=== PATIENT | male | born 1950 | race Two or more races ===

== ENCOUNTER → 2017-09-06 | Outpatient (CLI) | payer OTHER ==
[2017-09-06 09:53] LABS: Cholesterol 162 mg/dL (< 200); HDL Cholesterol 41 mg/dL (40-59); LDL Cholesterol 115 mg/dL (< 100); Triglycerides 134 mg/dL (< 150)
[2017-09-06 10:15] LABS: Hepatitis B Surface Antigen Negative (Negative)
[2017-09-06 11:10] LABS: Hepatitis C Antibody Negative (Negative)
[2017-09-06 11:11] LABS: Hepatitis A Ab IgM Negative; Hepatitis B Core IgM Negative
== END | disposition home or self-care (01) ==
LOC: LAB 08:23
PROVIDERS: ATTEND Internal Medicine
DX: Z12.11 Encounter for screening for malignant neoplasm of colon (principal); I10 Essential (primary) hypertension; E78.2 Mixed hyperlipidemia; R79.89 Other specified abnormal findings of blood chemistry
CPT/HCPCS: 36415; 80061; 80074; 82306

== ENCOUNTER 2020-12-14 20:24 | Inpatient (IN) | payer MEDICARE, OTHER ==
[~2020-12-14] VITALS: Ht 180.3 cm; Wt 95.6 kg
[2020-12-14 21:25] LABS: Basophils # (auto) 0.1 10 ^3/uL (0-0.2); Eosinophils # (auto) 0 10 ^3/uL (0-0.8); Hematocrit 45.2 % (41.0-53.0); Hemoglobin 16.1 g/dL (13.5-17.5); Lymphocytes # (auto) 0.5 10 ^3/uL (0.4-5.4); Lymphocytes % (auto) 6.2 % (10.0-50.0); Mean Corpuscular Hemoglobin 31.6 pg (28.0-32.0); Mean Corpuscular Hgb Conc. 35.7 g/dL (32.0-36.0); Mean Corpuscular Volume 88.5 fL (80.0-100.0); Monocytes # (auto) 0.9 10 ^3/uL (0-1.3); Monocytes % (auto) 10.2 % (0.0-12.0); Neutrophils # (auto) 7.3 10 ^3/uL (1.6-8.6); Neutrophils % (auto) 82.6 % (37.0-80.0); Nucleated Red Blood Cells % 0.1 %; Red Cell Distribution Width 13.3 % (11.8-14.3); White Blood Cell 8.8 10^3/uL (4.4-10.8)
[2020-12-14 21:36] LABS: Alanine Aminotransferase 44 U/L (16-61); Albumin 2.8 g/dL (3.4-5.0); Anion Gap 9 (5-15); Aspartate Aminotransferase 42 U/L (15-37); BUN/Creatinine Ratio 21.8; Blood Urea Nitrogen 17 mg/dL (7-18); Calcium 8.7 mg/dL (8.5-10.1); Carbon Dioxide 26 mmol/L (21-32); Chloride 96 mmol/L (98-107); GFR African American 126 mL/min; GFR Non-African American 104 mL/min; Glucose 109 mg/dL (74-106); Magnesium 2.1 mg/dL (1.6-2.6); Potassium 3.4 mmol/L (3.5-5.1); Sodium 131 mmol/L (136-145)
[2020-12-14 21:41] LABS: Alkaline Phosphatase 79 U/L (45-117); Bilirubin, Total 0.6 mg/dL (0.2-1.0); Total Protein 6.7 g/dL (6.4-8.2)
[2020-12-14] MEDS ORDERED: DexAMETHasone SOD PHOS 10MG/1ML VIAL INJ IV ONE (22:15)
[2020-12-14 22:47] LABS: INR 1.05 (0.9-1.15); Partial Thromboplastin Time 32.8 sec (23.6-33.0)
[2020-12-14] MEDS ORDERED: ACETAMINOPHEN 500 MG TAB PO PRN (23:00)
[2020-12-14] MEDS ORDERED: REMDESIVIR PER PHARMACY 0 ML IV SCH (23:00)
[2020-12-14] MEDS ORDERED: REMDESIVIR PER PHARMACY IV SCH (23:30)
[2020-12-15 03:39] LABS: Hematocrit 45.3 % (41.0-53.0); Mean Corpuscular Hemoglobin 31.7 pg (28.0-32.0); Mean Corpuscular Hgb Conc. 35.2 g/dL (32.0-36.0); Mean Corpuscular Volume 89.9 fL (80.0-100.0); Red Blood Cells 5.04 10^6/uL (4.5-5.90); Red Cell Distribution Width 13.5 % (11.8-14.3); White Blood Cell 8.4 10^3/uL (4.4-10.8)
[2020-12-15 04:03] LABS: Albumin 2.6 g/dL (3.4-5.0); Calcium 8.9 mg/dL (8.5-10.1); Potassium 3.6 mmol/L (3.5-5.1)
[2020-12-15 04:05] LABS: BUN/Creatinine Ratio 26.7
[2020-12-15 04:07] LABS: Bilirubin, Total 0.6 mg/dL (0.2-1.0); Total Protein 6.4 g/dL (6.4-8.2)
[2020-12-15 04:11] LABS: Basophils % (manual) 0 (0.0-2.0); Blast Cells 0; Eosinophils % (manual) 0 (0-7); Promyelocytes % 0; Reactive Lymphocytes 0
[2020-12-15 06:35] LABS: Band Neutrophils % (manual) 36; Lymphocytes % (manual) 8 (10.0-50.0); Metamyelocytes % 1; Monocytes % (manual) 3 (0-12); Myelocytes % 2
[2020-12-15] MEDS ORDERED: ONDANSETRON HCL 4 MG/2 ML VIAL IV PRN (08:45)
[2020-12-15] MEDS ORDERED: ONDANSETRON HCL 4 MG/2 ML VIAL ONE (08:53)
[2020-12-15] MEDS: BUDESONIDE (INHALATION) 180 MCG IH IN SCH ×2 (10:00→22:50)
[2020-12-15] MEDS ORDERED: ENOXAPARIN SOD 40 MG/0.4 ML SYRINGE SC SCH (10:00)
[2020-12-15] MEDS ORDERED: FUROSEMIDE 20 MG/2 ML VIAL IV ONE (10:15)
[2020-12-15] MEDS: CHOLECALCIFEROL (VITD3) 2,000 UNIT CAP/TAB PO SCH (10:15)
[2020-12-15] MEDS: ZINC SULFATE 220mg CAP or TAB PO SCH (10:15)
[2020-12-15] MEDS: DexAMETHasone SOD PHOS 10MG/1ML VIAL INJ IV SCH (10:15)
[2020-12-15] MEDS: ASCORBIC ACID 1,000 MG TAB PO SCH (10:15)
[2020-12-15] MEDS ORDERED: cefTRIAXone 1GM/50ML D5W 50 ML IV ONE (10:15)
[2020-12-15] MEDS ORDERED: POTASSIUM EFFERVESENT TAB 25 MEQ PO ONE (10:15)
[2020-12-15] MEDS: AZITHROMYCIN 500MG/ 250ML 250 ML IV SCH (10:15)
[2020-12-15] MEDS: FLORASTOR (S. BOULARDII) 250 MG CAP PO SCH (10:15)
[2020-12-15] MEDS ORDERED: REMDESIVIR 200 MG in NS 210ml LOADING DOSE ADULT IV ONE (12:00)
[2020-12-15 14:00] VITALS: BP 133/75
[2020-12-15] MEDS: ALBUTEROL SULF HFA 90MCG INH 200DOSE IN PRN ×2 (15:53→22:50)
[2020-12-15 17:58] VITALS: BP 142/78
[2020-12-15] MEDS: FUROSEMIDE 20 MG/2 ML VIAL IV SCH (18:37)
[2020-12-15] MEDS: ENOXAPARIN SOD 40 MG/0.4 ML SYRINGE SC SCH (21:09)
[2020-12-15 22:00] VITALS: BP 131/76
[2020-12-16 05:00] VITALS: BP 130/82
[2020-12-16] MEDS: FUROSEMIDE 20 MG/2 ML VIAL IV SCH ×2 (05:58→18:15)
[2020-12-16] MEDS: BUDESONIDE (INHALATION) 180 MCG IH IN SCH ×2 (06:44→21:23)
[2020-12-16] MEDS: ALBUTEROL SULF HFA 90MCG INH 200DOSE IN PRN ×2 (06:44→21:23)
[2020-12-16 07:05] LABS: Potassium 3.5 mmol/L (3.5-5.1)
[2020-12-16 07:11] LABS: Albumin 2.4 g/dL (3.4-5.0); BUN/Creatinine Ratio 33.3; Bilirubin, Total 0.5 mg/dL (0.2-1.0); Calcium 8.9 mg/dL (8.5-10.1); Total Protein 6.4 g/dL (6.4-8.2)
[2020-12-16 08:00] VITALS: BP 130/82
[2020-12-16 08:30] VITALS: BP 118/69
[2020-12-16] MEDS: cefTRIAXone 1GM/50ML D5W 50 ML IV SCH (08:47)
[2020-12-16] MEDS: DexAMETHasone SOD PHOS 10MG/1ML VIAL INJ IV SCH (08:48)
[2020-12-16] MEDS: ASCORBIC ACID 1,000 MG TAB PO SCH (08:48)
[2020-12-16] MEDS: FLORASTOR (S. BOULARDII) 250 MG CAP PO SCH (08:48)
[2020-12-16] MEDS: ZINC SULFATE 220mg CAP or TAB PO SCH (08:48)
[2020-12-16] MEDS: CHOLECALCIFEROL (VITD3) 2,000 UNIT CAP/TAB PO SCH (08:49)
[2020-12-16] MEDS: AZITHROMYCIN 500MG/ 250ML 250 ML IV SCH (09:44)
[2020-12-16] MEDS ORDERED: POTASSIUM EFFERVESENT TAB 25 MEQ PO SCH (10:00)
[2020-12-16] MEDS: ENOXAPARIN SOD 40 MG/0.4 ML SYRINGE SC SCH ×2 (10:00→22:28)
[2020-12-16 12:30] VITALS: BP 113/70
[2020-12-16] MEDS: REMDESIVIR 100mg 100 MG in SODIUM CHL 0.9% 230 ML IV SCH (15:30)
[2020-12-16 17:00] VITALS: BP 131/76
[2020-12-16 21:58] VITALS: BP 122/82
[2020-12-17 05:00] VITALS: BP 122/74
[2020-12-17] MEDS: FUROSEMIDE 20 MG/2 ML VIAL IV SCH ×2 (05:51→17:25)
[2020-12-17 06:42] LABS: Potassium 3.8 mmol/L (3.5-5.1)
[2020-12-17 06:49] LABS: Albumin 2.4 g/dL (3.4-5.0); BUN/Creatinine Ratio 38.3; Bilirubin, Total 0.6 mg/dL (0.2-1.0); Calcium 9.2 mg/dL (8.5-10.1); Total Protein 6.6 g/dL (6.4-8.2)
[2020-12-17] MEDS: BUDESONIDE (INHALATION) 180 MCG IH IN SCH ×2 (07:48→22:29)
[2020-12-17] MEDS: ALBUTEROL SULF HFA 90MCG INH 200DOSE IN PRN ×2 (07:49→22:29)
[2020-12-17 08:00] VITALS: BP_SYST 122; BP_SYST 123; BP_DIAS 74; BP_DIAS 75
[2020-12-17] MEDS: ZINC SULFATE 220mg CAP or TAB PO SCH (09:21)
[2020-12-17] MEDS: DexAMETHasone SOD PHOS 10MG/1ML VIAL INJ IV SCH (09:21)
[2020-12-17] MEDS: cefTRIAXone 1GM/50ML D5W 50 ML IV SCH (09:21)
[2020-12-17] MEDS: POTASSIUM EFFERVESENT TAB 25 MEQ PO SCH (09:22)
[2020-12-17] MEDS: FLORASTOR (S. BOULARDII) 250 MG CAP PO SCH (09:22)
[2020-12-17] MEDS: CHOLECALCIFEROL (VITD3) 2,000 UNIT CAP/TAB PO SCH (09:22)
[2020-12-17] MEDS: ASCORBIC ACID 1,000 MG TAB PO SCH (09:22)
[2020-12-17] MEDS: ENOXAPARIN SOD 40 MG/0.4 ML SYRINGE SC SCH ×2 (09:23→21:43)
[2020-12-17] MEDS: AZITHROMYCIN 250 MG TAB PO SCH (09:23)
[2020-12-17 14:00] VITALS: BP 122/77
[2020-12-17] MEDS: REMDESIVIR 100mg 100 MG in SODIUM CHL 0.9% 230 ML IV SCH (14:59)
[2020-12-17 17:12] VITALS: BP 120/64
[2020-12-17 22:23] VITALS: BP 123/81
[2020-12-18] VITALS (8 sets, daily range): BP systolic 119–146; BP diastolic 77–87
[2020-12-18] MEDS: FUROSEMIDE 20 MG/2 ML VIAL IV SCH ×2 (06:17→17:46)
[2020-12-18 06:59] LABS: Potassium 3.8 mmol/L (3.5-5.1)
[2020-12-18 07:06] LABS: Albumin 2.3 g/dL (3.4-5.0); BUN/Creatinine Ratio 34.8; Bilirubin, Total 0.6 mg/dL (0.2-1.0); Calcium 8.8 mg/dL (8.5-10.1); Total Protein 6.2 g/dL (6.4-8.2)
[2020-12-18] MEDS: ALBUTEROL SULF HFA 90MCG INH 200DOSE IN PRN ×2 (07:08→18:58)
[2020-12-18] MEDS: BUDESONIDE (INHALATION) 180 MCG IH IN SCH ×2 (07:09→18:58)
[2020-12-18 08:16] LABS: Hematocrit 43.7 % (41.0-53.0); Hemoglobin 15.2 g/dL (13.5-17.5); Mean Corpuscular Hemoglobin 31.2 pg (28.0-32.0); Mean Corpuscular Hgb Conc. 34.7 g/dL (32.0-36.0); Mean Corpuscular Volume 89.9 fL (80.0-100.0); Red Blood Cells 4.86 10^6/uL (4.5-5.90); Red Cell Distribution Width 13.3 % (11.8-14.3); White Blood Cell 14.3 10^3/uL (4.4-10.8)
[2020-12-18 08:24] LABS: Basophils % (manual) 0 (0.0-2.0); Blast Cells 0; Eosinophils % (manual) 0 (0-7); Myelocytes % 0; Promyelocytes % 0; Reactive Lymphocytes 0
[2020-12-18] MEDS: DexAMETHasone SOD PHOS 10MG/1ML VIAL INJ IV SCH (08:59)
[2020-12-18] MEDS: POTASSIUM EFFERVESENT TAB 25 MEQ PO SCH (08:59)
[2020-12-18] MEDS: ZINC SULFATE 220mg CAP or TAB PO SCH (08:59)
[2020-12-18] MEDS: FLORASTOR (S. BOULARDII) 250 MG CAP PO SCH (08:59)
[2020-12-18] MEDS: cefTRIAXone 1GM/50ML D5W 50 ML IV SCH (08:59)
[2020-12-18] MEDS: ENOXAPARIN SOD 40 MG/0.4 ML SYRINGE SC SCH ×2 (09:00→21:42)
[2020-12-18] MEDS: CHOLECALCIFEROL (VITD3) 2,000 UNIT CAP/TAB PO SCH (09:00)
[2020-12-18] MEDS: AZITHROMYCIN 250 MG TAB PO SCH (09:00)
[2020-12-18] MEDS: ASCORBIC ACID 1,000 MG TAB PO SCH (09:00)
[2020-12-18 11:23] LABS: Band Neutrophils % (manual) 11; Lymphocytes % (manual) 7 (10.0-50.0); Metamyelocytes % 1; Monocytes % (manual) 10 (0-12)
[2020-12-18] MEDS: REMDESIVIR 100mg 100 MG in SODIUM CHL 0.9% 230 ML IV SCH (15:28)
[2020-12-19 05:19] VITALS: BP 130/74
[2020-12-19] MEDS: FUROSEMIDE 20 MG/2 ML VIAL IV SCH ×2 (06:27→16:46)
[2020-12-19 07:03] LABS: Hematocrit 45.5 % (41.0-53.0); Hemoglobin 15.8 g/dL (13.5-17.5); Mean Corpuscular Hemoglobin 31.4 pg (28.0-32.0); Mean Corpuscular Hgb Conc. 34.8 g/dL (32.0-36.0); Mean Corpuscular Volume 90.3 fL (80.0-100.0); Red Blood Cells 5.03 10^6/uL (4.5-5.90); White Blood Cell 18.1 10^3/uL (4.4-10.8)
[2020-12-19 07:05] LABS: Potassium 4.3 mmol/L (3.5-5.1)
[2020-12-19 07:09] LABS: Band Neutrophils % (manual) 0; Basophils % (manual) 0 (0.0-2.0); Blast Cells 0; Eosinophils % (manual) 0 (0-7); Metamyelocytes % 0; Myelocytes % 0; Promyelocytes % 0; Reactive Lymphocytes 0
[2020-12-19 07:15] LABS: Albumin 2.2 g/dL (3.4-5.0); BUN/Creatinine Ratio 34.4; Bilirubin, Total 0.6 mg/dL (0.2-1.0); Calcium 8.7 mg/dL (8.5-10.1); Total Protein 6.2 g/dL (6.4-8.2)
[2020-12-19 08:00] VITALS: BP_SYST 130; BP_SYST 136; BP_DIAS 74; BP_DIAS 85
[2020-12-19 08:15] LABS: Lymphocytes % (manual) 14 (10.0-50.0); Monocytes % (manual) 11 (0-12)
[2020-12-19] MEDS: DexAMETHasone SOD PHOS 10MG/1ML VIAL INJ IV SCH (09:07)
[2020-12-19] MEDS: cefTRIAXone 1GM/50ML D5W 50 ML IV SCH (09:07)
[2020-12-19] MEDS: FLORASTOR (S. BOULARDII) 250 MG CAP PO SCH (09:08)
[2020-12-19] MEDS: ASCORBIC ACID 1,000 MG TAB PO SCH (09:08)
[2020-12-19] MEDS: POTASSIUM EFFERVESENT TAB 25 MEQ PO SCH (09:08)
[2020-12-19] MEDS: ZINC SULFATE 220mg CAP or TAB PO SCH (09:08)
[2020-12-19] MEDS: AZITHROMYCIN 250 MG TAB PO SCH (09:08)
[2020-12-19] MEDS: CHOLECALCIFEROL (VITD3) 2,000 UNIT CAP/TAB PO SCH (09:08)
[2020-12-19] MEDS: ENOXAPARIN SOD 40 MG/0.4 ML SYRINGE SC SCH ×2 (09:09→22:23)
[2020-12-19] MEDS: BUDESONIDE (INHALATION) 180 MCG IH IN SCH ×2 (10:00→21:49)
[2020-12-19 12:00] VITALS: BP 139/93
[2020-12-19] MEDS: REMDESIVIR 100mg 100 MG in SODIUM CHL 0.9% 230 ML IV SCH (14:59)
[2020-12-19 16:00] VITALS: BP 129/81
[2020-12-19 22:25] VITALS: BP 124/73
[2020-12-20 05:24] VITALS: BP 147/92
[2020-12-20] MEDS: ALBUTEROL SULF HFA 90MCG INH 200DOSE IN PRN ×2 (06:14→19:28)
[2020-12-20] MEDS: BUDESONIDE (INHALATION) 180 MCG IH IN SCH ×2 (06:14→19:28)
[2020-12-20] MEDS: FUROSEMIDE 20 MG/2 ML VIAL IV SCH ×2 (06:30→18:01)
[2020-12-20 08:00] VITALS: BP 126/86
[2020-12-20] MEDS: cefTRIAXone 1GM/50ML D5W 50 ML IV SCH (09:42)
[2020-12-20] MEDS: DexAMETHasone SOD PHOS 10MG/1ML VIAL INJ IV SCH (09:43)
[2020-12-20] MEDS: ASCORBIC ACID 1,000 MG TAB PO SCH (09:43)
[2020-12-20] MEDS: ZINC SULFATE 220mg CAP or TAB PO SCH (09:43)
[2020-12-20] MEDS: FLORASTOR (S. BOULARDII) 250 MG CAP PO SCH (09:44)
[2020-12-20] MEDS: POTASSIUM EFFERVESENT TAB 25 MEQ PO SCH (09:45)
[2020-12-20] MEDS: ENOXAPARIN SOD 40 MG/0.4 ML SYRINGE SC SCH ×2 (09:45→21:05)
[2020-12-20] MEDS: CHOLECALCIFEROL (VITD3) 2,000 UNIT CAP/TAB PO SCH (09:45)
[2020-12-20 13:00] VITALS: BP 140/74
[2020-12-20 17:00] VITALS: BP 131/86
[2020-12-20 22:00] VITALS: BP 117/71
[2020-12-21 05:00] VITALS: BP 118/71
[2020-12-21] MEDS: FUROSEMIDE 20 MG/2 ML VIAL IV SCH ×2 (06:01→17:40)
[2020-12-21 06:02] LABS: Hematocrit 49.3 % (41.0-53.0); Hemoglobin 17.1 g/dL (13.5-17.5); Mean Corpuscular Hgb Conc. 34.8 g/dL (32.0-36.0); Mean Corpuscular Volume 89.1 fL (80.0-100.0); Red Blood Cells 5.53 10^6/uL (4.5-5.90); Red Cell Distribution Width 13.4 % (11.8-14.3)
[2020-12-21 06:20] LABS: Calcium 9.2 mg/dL (8.5-10.1); Potassium 4.5 mmol/L (3.5-5.1)
[2020-12-21 06:22] LABS: BUN/Creatinine Ratio 35.2
[2020-12-21 06:33] LABS: Basophils % (manual) 0 (0.0-2.0); Blast Cells 0; Eosinophils % (manual) 0 (0-7); Promyelocytes % 0; Reactive Lymphocytes 0
[2020-12-21] MEDS: BUDESONIDE (INHALATION) 180 MCG IH IN SCH ×2 (06:56→19:23)
[2020-12-21] MEDS: ALBUTEROL SULF HFA 90MCG INH 200DOSE IN PRN ×2 (06:57→19:23)
[2020-12-21 08:19] LABS: Band Neutrophils % (manual) 1; Lymphocytes % (manual) 20 (10.0-50.0); Metamyelocytes % 2; Monocytes % (manual) 7 (0-12); Myelocytes % 3
[2020-12-21 09:00] VITALS: BP 104/76
[2020-12-21] MEDS: ENOXAPARIN SOD 40 MG/0.4 ML SYRINGE SC SCH ×2 (09:20→21:06)
[2020-12-21] MEDS: CHOLECALCIFEROL (VITD3) 2,000 UNIT CAP/TAB PO SCH (09:20)
[2020-12-21] MEDS: cefTRIAXone 1GM/50ML D5W 50 ML IV SCH (09:20)
[2020-12-21] MEDS: ZINC SULFATE 220mg CAP or TAB PO SCH (09:21)
[2020-12-21] MEDS: DexAMETHasone SOD PHOS 10MG/1ML VIAL INJ IV SCH (09:21)
[2020-12-21] MEDS: ASCORBIC ACID 1,000 MG TAB PO SCH (09:21)
[2020-12-21] MEDS: FLORASTOR (S. BOULARDII) 250 MG CAP PO SCH (09:21)
[2020-12-21] MEDS: POTASSIUM EFFERVESENT TAB 25 MEQ PO SCH (09:21)
[2020-12-21 09:32] VITALS: BP 104/76
[2020-12-21 13:00] VITALS: BP 124/78
[2020-12-21 17:00] VITALS: BP 126/76
[2020-12-21 22:00] VITALS: BP 123/66
[2020-12-22 05:00] VITALS: BP 110/84
[2020-12-22] MEDS: FUROSEMIDE 20 MG/2 ML VIAL IV SCH ×2 (05:46→18:09)
[2020-12-22 05:55] LABS: Hematocrit 48.7 % (41.0-53.0); Hemoglobin 16.7 g/dL (13.5-17.5); Mean Corpuscular Hemoglobin 31.1 pg (28.0-32.0); Mean Corpuscular Hgb Conc. 34.3 g/dL (32.0-36.0); Mean Corpuscular Volume 90.7 fL (80.0-100.0); Red Blood Cells 5.37 10^6/uL (4.5-5.90); Red Cell Distribution Width 13.2 % (11.8-14.3); White Blood Cell 25.3 10^3/uL (4.4-10.8)
[2020-12-22 06:10] LABS: Basophils % (manual) 0 (0.0-2.0); Blast Cells 0; Eosinophils % (manual) 0 (0-7); Promyelocytes % 0
[2020-12-22 06:15] LABS: Calcium 9.3 mg/dL (8.5-10.1); Potassium 4.3 mmol/L (3.5-5.1)
[2020-12-22 06:17] LABS: BUN/Creatinine Ratio 40.3
[2020-12-22 07:02] LABS: Band Neutrophils % (manual) 16; Lymphocytes % (manual) 5 (10.0-50.0); Metamyelocytes % 4; Monocytes % (manual) 6 (0-12); Myelocytes % 5; Reactive Lymphocytes 1
[2020-12-22] MEDS: BUDESONIDE (INHALATION) 180 MCG IH IN SCH ×2 (07:33→22:34)
[2020-12-22] MEDS: ALBUTEROL SULF HFA 90MCG INH 200DOSE IN PRN ×2 (07:33→22:34)
[2020-12-22 09:24] VITALS: BP 120/79
[2020-12-22] MEDS: DexAMETHasone SOD PHOS 10MG/1ML VIAL INJ IV SCH (10:06)
[2020-12-22] MEDS: cefTRIAXone 1GM/50ML D5W 50 ML IV SCH (10:06)
[2020-12-22] MEDS: ENOXAPARIN SOD 40 MG/0.4 ML SYRINGE SC SCH (10:06)
[2020-12-22] MEDS: POTASSIUM EFFERVESENT TAB 25 MEQ PO SCH (10:06)
[2020-12-22] MEDS: FLORASTOR (S. BOULARDII) 250 MG CAP PO SCH (10:07)
[2020-12-22] MEDS: CHOLECALCIFEROL (VITD3) 2,000 UNIT CAP/TAB PO SCH (10:07)
[2020-12-22] MEDS: ZINC SULFATE 220mg CAP or TAB PO SCH (10:07)
[2020-12-22] MEDS: ASCORBIC ACID 1,000 MG TAB PO SCH (10:07)
[2020-12-22 13:00] VITALS: BP 102/73
[2020-12-22] MEDS: PIPERACILLIN-TAZOB 3.375GM 100 ML IV SCH ×2 (14:18→20:50)
[2020-12-22 17:00] VITALS: BP 130/84
[2020-12-22 18:25] LABS: Urine Bacteria NONE SEEN /hpf (None Seen); Urine Blood Negative /uL (Negative); Urine Specific Gravity 1.022 (1.001-1.035); Urine WBC 1 /hpf (0 - 3)
[2020-12-22] MEDS: ENOXAPARIN SOD 60 MG/0.6 ML SYRINGE SC SCH (20:51)
[2020-12-22 22:00] VITALS: BP 120/75
[2020-12-23 05:00] VITALS: BP 108/82
[2020-12-23] MEDS: PIPERACILLIN-TAZOB 3.375GM 100 ML IV SCH ×3 (06:01→21:30)
[2020-12-23] MEDS: FUROSEMIDE 20 MG/2 ML VIAL IV SCH ×2 (06:02→18:37)
[2020-12-23] MEDS: BUDESONIDE (INHALATION) 180 MCG IH IN SCH ×2 (07:34→21:05)
[2020-12-23] MEDS: ALBUTEROL SULF HFA 90MCG INH 200DOSE IN PRN ×2 (07:34→21:05)
[2020-12-23 09:00] VITALS: BP 116/75
[2020-12-23] MEDS: ZINC SULFATE 220mg CAP or TAB PO SCH (09:07)
[2020-12-23] MEDS: DexAMETHasone SOD PHOS 10MG/1ML VIAL INJ IV SCH (09:07)
[2020-12-23] MEDS: POTASSIUM EFFERVESENT TAB 25 MEQ PO SCH (09:08)
[2020-12-23] MEDS: CHOLECALCIFEROL (VITD3) 2,000 UNIT CAP/TAB PO SCH (09:08)
[2020-12-23] MEDS: ASCORBIC ACID 1,000 MG TAB PO SCH (09:08)
[2020-12-23] MEDS: FLORASTOR (S. BOULARDII) 250 MG CAP PO SCH (09:08)
[2020-12-23] MEDS: ENOXAPARIN SOD 60 MG/0.6 ML SYRINGE SC SCH ×2 (09:09→21:30)
[2020-12-23 13:00] VITALS: BP 113/74
[2020-12-23 17:00] VITALS: BP 128/77
[2020-12-23] MEDS ORDERED: PANTOPRAZOLE 40 MG TAB PO ONE (18:15)
[2020-12-23 22:00] VITALS: BP 112/77
[2020-12-24 03:21] VITALS: BP 112/77
[2020-12-24 05:00] VITALS: BP 108/71
[2020-12-24] MEDS: FUROSEMIDE 20 MG/2 ML VIAL IV SCH ×2 (05:50→17:32)
[2020-12-24] MEDS: PANTOPRAZOLE 40 MG TAB PO SCH ×2 (05:51→07:25)
[2020-12-24] MEDS: PIPERACILLIN-TAZOB 3.375GM 100 ML IV SCH ×3 (05:51→20:52)
[2020-12-24 06:46] LABS: Potassium 3.6 mmol/L (3.5-5.1)
[2020-12-24 06:49] LABS: BUN/Creatinine Ratio 29.1
[2020-12-24] MEDS: BUDESONIDE (INHALATION) 180 MCG IH IN SCH ×2 (07:31→22:00)
[2020-12-24] MEDS: ALBUTEROL SULF HFA 90MCG INH 200DOSE IN PRN (07:31)
[2020-12-24 07:32] LABS: Hemoglobin 16.3 g/dL (13.5-17.5); Mean Corpuscular Volume 91.1 fL (80.0-100.0); Red Blood Cells 5.27 10^6/uL (4.5-5.90); Red Cell Distribution Width 13.2 % (11.8-14.3); White Blood Cell 22.1 10^3/uL (4.4-10.8)
[2020-12-24 07:40] LABS: Basophils % (manual) 0 (0.0-2.0); Blast Cells 0; Eosinophils % (manual) 0 (0-7); Metamyelocytes % 0; Promyelocytes % 0; Reactive Lymphocytes 0
[2020-12-24 09:00] VITALS: BP 130/72
[2020-12-24] MEDS: ZINC SULFATE 220mg CAP or TAB PO SCH (09:29)
[2020-12-24] MEDS: DexAMETHasone SOD PHOS 10MG/1ML VIAL INJ IV SCH (09:29)
[2020-12-24] MEDS: ENOXAPARIN SOD 60 MG/0.6 ML SYRINGE SC SCH ×2 (09:30→20:52)
[2020-12-24] MEDS: ASCORBIC ACID 1,000 MG TAB PO SCH (09:30)
[2020-12-24] MEDS: CHOLECALCIFEROL (VITD3) 2,000 UNIT CAP/TAB PO SCH (09:30)
[2020-12-24] MEDS: POTASSIUM EFFERVESENT TAB 25 MEQ PO SCH (09:30)
[2020-12-24 10:12] LABS: Band Neutrophils % (manual) 4; Lymphocytes % (manual) 12 (10.0-50.0); Monocytes % (manual) 7 (0-12); Myelocytes % 1
[2020-12-24 13:00] VITALS: BP 107/69
[2020-12-24 17:00] VITALS: BP 111/76
[2020-12-24 22:00] VITALS: BP 124/77
[2020-12-25] MEDS: ALBUTEROL SULF HFA 90MCG INH 200DOSE IN PRN ×3 (02:30→21:19)
[2020-12-25 05:00] VITALS: BP 136/86
[2020-12-25] MEDS: FUROSEMIDE 20 MG/2 ML VIAL IV SCH ×2 (05:50→18:00)
[2020-12-25] MEDS: PIPERACILLIN-TAZOB 3.375GM 100 ML IV SCH ×3 (05:50→21:16)
[2020-12-25] MEDS: BUDESONIDE (INHALATION) 180 MCG IH IN SCH ×2 (06:53→21:19)
[2020-12-25 09:00] VITALS: BP 106/68
[2020-12-25] MEDS: ASCORBIC ACID 1,000 MG TAB PO SCH (10:11)
[2020-12-25] MEDS: CHOLECALCIFEROL (VITD3) 2,000 UNIT CAP/TAB PO SCH (10:11)
[2020-12-25] MEDS: PANTOPRAZOLE 40 MG TAB PO SCH (10:11)
[2020-12-25] MEDS: DexAMETHasone SOD PHOS 10MG/1ML VIAL INJ IV SCH (10:12)
[2020-12-25] MEDS: ZINC SULFATE 220mg CAP or TAB PO SCH (10:12)
[2020-12-25] MEDS: ENOXAPARIN SOD 60 MG/0.6 ML SYRINGE SC SCH ×2 (10:13→21:16)
[2020-12-25] MEDS: POTASSIUM EFFERVESENT TAB 25 MEQ PO SCH (10:13)
[2020-12-25 13:00] VITALS: BP 120/75
[2020-12-25 17:00] VITALS: BP 124/90
[2020-12-25 22:00] VITALS: BP 110/76
[2020-12-26 05:00] VITALS: BP 133/88
[2020-12-26] MEDS: PIPERACILLIN-TAZOB 3.375GM 100 ML IV SCH ×3 (05:10→21:25)
[2020-12-26] MEDS: FUROSEMIDE 20 MG/2 ML VIAL IV SCH ×2 (05:10→17:19)
[2020-12-26] MEDS: BUDESONIDE (INHALATION) 180 MCG IH IN SCH ×2 (06:34→22:05)
[2020-12-26] MEDS: ALBUTEROL SULF HFA 90MCG INH 200DOSE IN PRN ×2 (06:34→22:05)
[2020-12-26 06:36] LABS: Hematocrit 45.6 % (41.0-53.0); Hemoglobin 15.8 g/dL (13.5-17.5); Mean Corpuscular Hemoglobin 30.8 pg (28.0-32.0); Mean Corpuscular Hgb Conc. 34.6 g/dL (32.0-36.0); Red Blood Cells 5.12 10^6/uL (4.5-5.90); Red Cell Distribution Width 12.9 % (11.8-14.3)
[2020-12-26 07:00] LABS: Band Neutrophils % (manual) 0; Basophils % (manual) 0 (0.0-2.0); Blast Cells 0; Eosinophils % (manual) 0 (0-7); Promyelocytes % 0; Reactive Lymphocytes 0
[2020-12-26 07:32] LABS: Lymphocytes % (manual) 9 (10.0-50.0); Metamyelocytes % 1; Monocytes % (manual) 10 (0-12); Myelocytes % 3
[2020-12-26] MEDS: DexAMETHasone SOD PHOS 10MG/1ML VIAL INJ IV SCH (08:30)
[2020-12-26] MEDS: ZINC SULFATE 220mg CAP or TAB PO SCH (08:30)
[2020-12-26] MEDS: POTASSIUM EFFERVESENT TAB 25 MEQ PO SCH (08:31)
[2020-12-26] MEDS: PANTOPRAZOLE 40 MG TAB PO SCH (08:32)
[2020-12-26] MEDS: ASCORBIC ACID 1,000 MG TAB PO SCH (08:32)
[2020-12-26] MEDS: CHOLECALCIFEROL (VITD3) 2,000 UNIT CAP/TAB PO SCH (08:32)
[2020-12-26] MEDS: ENOXAPARIN SOD 60 MG/0.6 ML SYRINGE SC SCH ×2 (08:32→21:26)
[2020-12-26 13:00] VITALS: BP 146/88
[2020-12-26 17:00] VITALS: BP 119/81
[2020-12-26 22:00] VITALS: BP 140/80
[2020-12-27 05:00] VITALS: BP 124/88
[2020-12-27] MEDS: FUROSEMIDE 20 MG/2 ML VIAL IV SCH ×2 (05:52→17:25)
[2020-12-27] MEDS: PIPERACILLIN-TAZOB 3.375GM 100 ML IV SCH ×3 (05:52→22:13)
[2020-12-27] MEDS: ALBUTEROL SULF HFA 90MCG INH 200DOSE IN PRN ×2 (06:41→20:12)
[2020-12-27] MEDS: BUDESONIDE (INHALATION) 180 MCG IH IN SCH ×2 (06:41→20:12)
[2020-12-27] MEDS: DexAMETHasone SOD PHOS 10MG/1ML VIAL INJ IV SCH (08:16)
[2020-12-27] MEDS: ZINC SULFATE 220mg CAP or TAB PO SCH (08:16)
[2020-12-27] MEDS: PANTOPRAZOLE 40 MG TAB PO SCH (08:16)
[2020-12-27] MEDS: POTASSIUM EFFERVESENT TAB 25 MEQ PO SCH (08:16)
[2020-12-27] MEDS: CHOLECALCIFEROL (VITD3) 2,000 UNIT CAP/TAB PO SCH (08:17)
[2020-12-27] MEDS: ENOXAPARIN SOD 60 MG/0.6 ML SYRINGE SC SCH ×2 (08:17→22:13)
[2020-12-27] MEDS: ASCORBIC ACID 1,000 MG TAB PO SCH (08:17)
[2020-12-27 16:12] VITALS: BP 124/88
[2020-12-27 17:00] VITALS: BP 126/78
[2020-12-27 22:00] VITALS: BP 140/73
[2020-12-28 05:00] VITALS: BP 137/81
[2020-12-28] MEDS: FUROSEMIDE 20 MG/2 ML VIAL IV SCH ×2 (06:47→18:08)
[2020-12-28] MEDS: PIPERACILLIN-TAZOB 3.375GM 100 ML IV SCH ×3 (06:47→21:04)
[2020-12-28] MEDS: ALBUTEROL SULF HFA 90MCG INH 200DOSE IN PRN ×2 (07:10→22:20)
[2020-12-28] MEDS: BUDESONIDE (INHALATION) 180 MCG IH IN SCH ×2 (07:11→22:19)
[2020-12-28] MEDS: DexAMETHasone SOD PHOS 10MG/1ML VIAL INJ IV SCH (08:13)
[2020-12-28] MEDS: ZINC SULFATE 220mg CAP or TAB PO SCH (08:14)
[2020-12-28] MEDS: POTASSIUM EFFERVESENT TAB 25 MEQ PO SCH (08:14)
[2020-12-28] MEDS: PANTOPRAZOLE 40 MG TAB PO SCH (08:16)
[2020-12-28] MEDS: ASCORBIC ACID 1,000 MG TAB PO SCH (08:16)
[2020-12-28] MEDS: ENOXAPARIN SOD 60 MG/0.6 ML SYRINGE SC SCH ×2 (08:17→21:04)
[2020-12-28] MEDS: CHOLECALCIFEROL (VITD3) 2,000 UNIT CAP/TAB PO SCH (08:17)
[2020-12-28 09:00] VITALS: BP 133/87
[2020-12-28 13:00] VITALS: BP 113/71
[2020-12-28 22:00] VITALS: BP 113/92
[2020-12-29 05:00] VITALS: BP 136/94
[2020-12-29 05:34] LABS: Hematocrit 44.5 % (41.0-53.0); Mean Corpuscular Hemoglobin 30.5 pg (28.0-32.0); Mean Corpuscular Hgb Conc. 33.8 g/dL (32.0-36.0); Mean Corpuscular Volume 90.2 fL (80.0-100.0); Red Blood Cells 4.93 10^6/uL (4.5-5.90); Red Cell Distribution Width 13.3 % (11.8-14.3)
[2020-12-29 06:00] LABS: Potassium 4.3 mmol/L (3.5-5.1)
[2020-12-29 06:08] LABS: BUN/Creatinine Ratio 28.4; Basophils % (manual) 0 (0.0-2.0); Blast Cells 0; Calcium 9.4 mg/dL (8.5-10.1); Eosinophils % (manual) 0 (0-7); Metamyelocytes % 0; Promyelocytes % 0; Reactive Lymphocytes 0
[2020-12-29] MEDS: PIPERACILLIN-TAZOB 3.375GM 100 ML IV SCH (06:17)
[2020-12-29] MEDS: FUROSEMIDE 20 MG/2 ML VIAL IV SCH (06:17)
[2020-12-29] MEDS: BUDESONIDE (INHALATION) 180 MCG IH IN SCH (06:47)
[2020-12-29] MEDS: ALBUTEROL SULF HFA 90MCG INH 200DOSE IN PRN (06:47)
[2020-12-29 08:36] VITALS: BP 118/73
[2020-12-29] MEDS: DexAMETHasone SOD PHOS 10MG/1ML VIAL INJ IV SCH (10:26)
[2020-12-29] MEDS: ZINC SULFATE 220mg CAP or TAB PO SCH (10:27)
[2020-12-29] MEDS: ASCORBIC ACID 1,000 MG TAB PO SCH (10:27)
[2020-12-29] MEDS: CHOLECALCIFEROL (VITD3) 2,000 UNIT CAP/TAB PO SCH (10:27)
[2020-12-29] MEDS: POTASSIUM EFFERVESENT TAB 25 MEQ PO SCH (10:27)
[2020-12-29] MEDS: PANTOPRAZOLE 40 MG TAB PO SCH (10:27)
[2020-12-29] MEDS: ENOXAPARIN SOD 60 MG/0.6 ML SYRINGE SC SCH (10:28)
[2020-12-29] MEDS ORDERED: ALBUAER3 IN (10:29)
[2020-12-29] MEDS ORDERED: ASCO10003 PO (10:29)
[2020-12-29] MEDS ORDERED: CHOL1CAP47 PO (10:29)
[2020-12-29 11:48] LABS: Band Neutrophils % (manual) 6; Lymphocytes % (manual) 7 (10.0-50.0); Monocytes % (manual) 11 (0-12); Myelocytes % 2
[2020-12-29 12:55] VITALS: BP 118/73
[2020-12-29 13:00] VITALS: BP 111/80
== END 2020-12-29 15:30 | disposition home health service (06) | DRG 177 ==
LOC: ER 20:25 → OVERFLOW 12-15 00:21 → TELE-EAST 12-15 19:12
PROVIDERS: ADMIT Hospitalist; ATTEND Internal Medicine Pulmonary Disease
PROC: XW033E5 Introduction of Remdesivir Anti-infective into Peripheral Vein, Percutaneous Approach, New Technology Group 5 (ICD-10-PCS; principal; 2020-12-15)
DX: U07.1 COVID-19 (principal); J12.82 Pneumonia due to coronavirus disease 2019; J96.01 Acute respiratory failure with hypoxia; E87.1 Hypo-osmolality and hyponatremia; J98.11 Atelectasis; E66.9 Obesity, unspecified; R73.9 Hyperglycemia, unspecified; I10 Essential (primary) hypertension; E88.09 Other disorders of plasma-protein metabolism, not elsewhere classified; Z68.31 Body mass index [BMI] 31.0-31.9, adult; T38.0X5A Adverse effect of glucocorticoids and synthetic analogues, initial encounter; Y92.89 Other specified places as the place of occurrence of the external cause; Z79.899 Other long term (current) drug therapy
CPT/HCPCS: 36415; 36600; 71045; 80048; 80053; 81001; 82728; 82805; 83605; 83615; 83735; 83880; 84443; 84484; 85007; 85025; 85027; 85379; 85610; 85730; 86141; 87040; 87086; 87426; 93005; 94640; 96365; 96366; 96367; 96368; 96375; 96376; G0378; J0696; J1100; J2405; J2543

== ENCOUNTER → 2021-08-09 | Outpatient (CLI) | payer MEDICARE, OTHER ==
[~2021-08-09] MED LIST: ALBUAER3 IN; ASCO10003 PO; CHOL1CAP47 PO
== END | disposition home or self-care (01) ==
LOC: LAB 10:03
PROVIDERS: ATTEND Nurse Practitioner Family
DX: Z20.822 Contact with and (suspected) exposure to COVID-19 (principal)
CPT/HCPCS: C9803; U0003

== ENCOUNTER 2021-11-09 11:05 | Inpatient (IN) | payer MEDICARE, OTHER ==
[~2021-11-09] VITALS: Ht 182.9 cm; Wt 104.0 kg
[2021-11-09 12:13] LABS: Hematocrit 41.2 % (41.0-53.0); Mean Corpuscular Hemoglobin 29.8 pg (28.0-32.0); Mean Corpuscular Volume 87.7 fL (80.0-100.0); Red Cell Distribution Width 13.6 % (11.8-14.3); White Blood Cell 19.9 10^3/uL (4.4-10.8)
[2021-11-09 12:31] LABS: Blast Cells 0; Metamyelocytes % 0; Promyelocytes % 0; Reactive Lymphocytes 0
[2021-11-09 12:33] LABS: Albumin 2.6 g/dL (3.4-5.0); BUN/Creatinine Ratio 16.7; Calcium 9.3 mg/dL (8.5-10.1); Magnesium 2.1 mg/dL (1.6-2.6); Potassium 3.1 mmol/L (3.5-5.1)
[2021-11-09 12:35] LABS: Bilirubin, Total 0.6 mg/dL (0.2-1.0); Total Protein 6.6 g/dL (6.4-8.2)
[2021-11-09 14:24] LABS: Band Neutrophils % (manual) 2; Basophils % (manual) 2 (0.0-2.0); Eosinophils % (manual) 5 (0-7); Lymphocytes % (manual) 1 (10.0-50.0); Monocytes % (manual) 8 (0-12); Myelocytes % 1
[2021-11-09] MEDS ORDERED: SODIUM CHLORIDE 0.9% 1,000 ML IV ONE (14:30)
[2021-11-09] MEDS ORDERED: cefTRIAXone 1GM/50ML D5W 50 ML IV ONE (14:30)
[2021-11-09] MEDS ORDERED: AZITHROMYCIN 500MG/ 250ML 250 ML IV ONE (14:30)
[2021-11-09] MEDS ORDERED: POTASSIUM CHL 20 Meq TABLET PO ONE (18:00)
[2021-11-09] MEDS: cefTRIAXone 1GM/50ML D5W 50 ML IV SCH (21:47)
[2021-11-09] MEDS: AZITHROMYCIN 500MG/ 250ML 250 ML IV SCH (21:48)
[2021-11-10] VITALS (8 sets, daily range): BP systolic 110–142; BP diastolic 59–88
[2021-11-10 03:46] LABS: Urine Bacteria NONE SEEN /hpf (None Seen); Urine Blood TRACE /uL (Negative); Urine Specific Gravity 1.007 (1.001-1.035); Urine WBC 2 /hpf (0 - 3)
[2021-11-10 07:32] LABS: Basophils # (auto) 0.1 10 ^3/uL (0-0.2); Basophils % (auto) 0.5 % (0.0-2.0); Eosinophils # (auto) 0.2 10 ^3/uL (0-0.8); Eosinophils % (auto) 0.9 % (0.0-7.0); Hematocrit 39.2 % (41.0-53.0); Hemoglobin 13.7 g/dL (13.5-17.5); Lymphocytes % (auto) 5.6 % (10.0-50.0); Mean Corpuscular Hemoglobin 30.8 pg (28.0-32.0); Mean Corpuscular Hgb Conc. 34.9 g/dL (32.0-36.0); Mean Corpuscular Volume 88.1 fL (80.0-100.0); Monocytes # (auto) 2.3 10 ^3/uL (0-1.3); Monocytes % (auto) 13.5 % (0.0-12.0); Neutrophils # (auto) 13.7 10 ^3/uL (1.6-8.6); Neutrophils % (auto) 79.5 % (37.0-80.0); Nucleated Red Blood Cells % 0.1 %; Red Blood Cells 4.45 10^6/uL (4.5-5.90); Red Cell Distribution Width 13.8 % (11.8-14.3); White Blood Cell 17.2 10^3/uL (4.4-10.8)
[2021-11-10 07:37] LABS: Albumin 2.5 g/dL (3.4-5.0); Calcium 9.2 mg/dL (8.5-10.1); Potassium 3.7 mmol/L (3.5-5.1)
[2021-11-10 07:41] LABS: BUN/Creatinine Ratio 15.5; Bilirubin, Total 0.6 mg/dL (0.2-1.0); Total Protein 6.9 g/dL (6.4-8.2)
[2021-11-10] MEDS ORDERED: ADENOSINE 84 MG in GIVE UN-DILUTED 0 ML IV ONE (08:30)
[2021-11-10] MEDS: ENOXAPARIN SOD 40 MG/0.4 ML SYRINGE SC SCH (10:00)
[2021-11-10] MEDS: AZITHROMYCIN 500MG/ 250ML 250 ML IV SCH ×2 (10:00→16:32)
[2021-11-10] MEDS: cefTRIAXone 1GM/50ML D5W 50 ML IV SCH ×2 (10:00→14:02)
[2021-11-10] MEDS: ALBUTEROL SULF 2.5 MG/0.5ML(0.5%) NEB SOLN NEB SCH (18:36)
[2021-11-10] MEDS: IPRATROPIUM BROM 0.5 MG/2.5ML INH SOL NEB SCH (18:36)
[2021-11-11] MEDS: ALBUTEROL SULF 2.5 MG/0.5ML(0.5%) NEB SOLN NEB SCH ×5 (00:06→23:42)
[2021-11-11] MEDS: IPRATROPIUM BROM 0.5 MG/2.5ML INH SOL NEB SCH ×5 (00:06→23:42)
[2021-11-11 05:00] VITALS: BP 109/78
[2021-11-11 07:01] LABS: Potassium 3.5 mmol/L (3.5-5.1)
[2021-11-11 07:05] LABS: BUN/Creatinine Ratio 20.7; Calcium 9.2 mg/dL (8.5-10.1)
[2021-11-11 07:08] LABS: Hematocrit 38.1 % (41.0-53.0); Hemoglobin 13.2 g/dL (13.5-17.5); Mean Corpuscular Hemoglobin 30.4 pg (28.0-32.0); Mean Corpuscular Hgb Conc. 34.5 g/dL (32.0-36.0); Mean Corpuscular Volume 88.2 fL (80.0-100.0); Red Blood Cells 4.32 10^6/uL (4.5-5.90); Red Cell Distribution Width 13.4 % (11.8-14.3); White Blood Cell 14.8 10^3/uL (4.4-10.8)
[2021-11-11 07:16] LABS: Basophils % (manual) 0 (0.0-2.0); Blast Cells 0; Reactive Lymphocytes 0
[2021-11-11 07:52] LABS: Band Neutrophils % (manual) 2; Eosinophils % (manual) 3 (0-7); Lymphocytes % (manual) 10 (10.0-50.0); Metamyelocytes % 2; Monocytes % (manual) 9 (0-12); Myelocytes % 1; Promyelocytes % 2
[2021-11-11 09:09] VITALS: BP 105/73
[2021-11-11] MEDS: cefTRIAXone 1GM/50ML D5W 50 ML IV SCH (09:34)
[2021-11-11] MEDS: ENOXAPARIN SOD 40 MG/0.4 ML SYRINGE SC SCH (09:52)
[2021-11-11] MEDS: AZITHROMYCIN 500MG/ 250ML 250 ML IV SCH (11:37)
[2021-11-11 13:00] VITALS: BP 111/68
[2021-11-11 16:55] VITALS: BP 119/62
[2021-11-11 22:00] VITALS: BP 112/53
[2021-11-12 05:00] VITALS: BP 104/57
[2021-11-12] MEDS: IPRATROPIUM BROM 0.5 MG/2.5ML INH SOL NEB SCH ×3 (06:02→19:07)
[2021-11-12] MEDS: ALBUTEROL SULF 2.5 MG/0.5ML(0.5%) NEB SOLN NEB SCH ×3 (06:02→19:07)
[2021-11-12 07:08] LABS: Potassium 4.4 mmol/L (3.5-5.1)
[2021-11-12 07:16] LABS: Albumin 2.4 g/dL (3.4-5.0); BUN/Creatinine Ratio 18.8; Bilirubin, Total 0.5 mg/dL (0.2-1.0); Calcium 9.4 mg/dL (8.5-10.1); Total Protein 6.7 g/dL (6.4-8.2)
[2021-11-12] MEDS: cefTRIAXone 1GM/50ML D5W 50 ML IV SCH (09:15)
[2021-11-12 09:18] VITALS: BP 110/56
[2021-11-12] MEDS: ENOXAPARIN SOD 40 MG/0.4 ML SYRINGE SC SCH (10:00)
[2021-11-12] MEDS: AZITHROMYCIN 500MG/ 250ML 250 ML IV SCH (10:20)
[2021-11-12 12:12] LABS: Basophils # (auto) 0.1 10 ^3/uL (0-0.2); Eosinophils # (auto) 0.6 10 ^3/uL (0-0.8); Eosinophils % (auto) 4.6 % (0.0-7.0); Hematocrit 41.1 % (41.0-53.0); Hemoglobin 13.4 g/dL (13.5-17.5); Lymphocytes # (auto) 1.5 10 ^3/uL (0.4-5.4); Lymphocytes % (auto) 10.8 % (10.0-50.0); Mean Corpuscular Hemoglobin 28.9 pg (28.0-32.0); Mean Corpuscular Hgb Conc. 32.6 g/dL (32.0-36.0); Mean Corpuscular Volume 88.8 fL (80.0-100.0); Monocytes # (auto) 1.5 10 ^3/uL (0-1.3); Monocytes % (auto) 10.4 % (0.0-12.0); Neutrophils # (auto) 10.2 10 ^3/uL (1.6-8.6); Neutrophils % (auto) 73.2 % (37.0-80.0); Red Blood Cells 4.63 10^6/uL (4.5-5.90); Red Cell Distribution Width 13.7 % (11.8-14.3)
[2021-11-12 13:14] VITALS: BP 108/69
[2021-11-12] MEDS ORDERED: DOXYCYCLINE 100 MG TAB/CAP PO SCH (15:40)
[2021-11-12 16:56] VITALS: BP 124/79
[2021-11-12 22:00] VITALS: BP 124/78
[2021-11-13] MEDS: IPRATROPIUM BROM 0.5 MG/2.5ML INH SOL NEB SCH ×3 (00:28→06:27)
[2021-11-13] MEDS: ALBUTEROL SULF 2.5 MG/0.5ML(0.5%) NEB SOLN NEB SCH ×3 (00:28→06:27)
[2021-11-13 05:00] VITALS: BP 115/69
[2021-11-13 07:55] LABS: Hematocrit 40.9 % (41.0-53.0); Hemoglobin 13.9 g/dL (13.5-17.5); Mean Corpuscular Hemoglobin 29.9 pg (28.0-32.0); Mean Corpuscular Hgb Conc. 33.9 g/dL (32.0-36.0); Mean Corpuscular Volume 88.2 fL (80.0-100.0); Red Blood Cells 4.64 10^6/uL (4.5-5.90); Red Cell Distribution Width 13.3 % (11.8-14.3); White Blood Cell 13.6 10^3/uL (4.4-10.8)
[2021-11-13 08:00] VITALS: BP 133/74
[2021-11-13 08:13] LABS: Potassium 4.3 mmol/L (3.5-5.1)
[2021-11-13 08:15] VITALS: BP 133/74
[2021-11-13 08:22] LABS: Basophils % (manual) 0 (0.0-2.0); Blast Cells 0; Reactive Lymphocytes 0
[2021-11-13 08:29] LABS: Albumin 2.5 g/dL (3.4-5.0); BUN/Creatinine Ratio 16.9; Bilirubin, Total 0.4 mg/dL (0.2-1.0); Calcium 9.6 mg/dL (8.5-10.1); Total Protein 6.8 g/dL (6.4-8.2)
[2021-11-13] MEDS ORDERED: CEFTRIAXONE SODIUM 2 GM in D5W 5% 50 ML IV ONE ×2 (09:00→11:00)
[2021-11-13 09:09] LABS: Band Neutrophils % (manual) 5; Eosinophils % (manual) 4 (0-7); Lymphocytes % (manual) 13 (10.0-50.0); Metamyelocytes % 4; Monocytes % (manual) 5 (0-12); Myelocytes % 9; Promyelocytes % 7
[2021-11-13] MEDS ORDERED: ALBUAER3 IN (09:31)
[2021-11-13] MEDS ORDERED: DOX100T PO (09:31)
[2021-11-13] MEDS ORDERED: DOXYCYCLINE 100 MG TAB/CAP PO SCH (10:00)
[2021-11-13] MEDS: ENOXAPARIN SOD 40 MG/0.4 ML SYRINGE SC SCH (10:00)
[2021-11-13] MEDS ORDERED: levoFLOXacin 250 MG TAB PO SCH (10:00)
[2021-11-13 10:30] VITALS: BP 123/73
[2021-11-13 12:32] VITALS: BP 122/78
== END 2021-11-13 13:00 | disposition home or self-care (01) | DRG 871 ==
LOC: ER 11:05 → TELE 19:31 → TELE-WESTW 23:53
PROVIDERS: ADMIT Internal Medicine; ATTEND Internal Medicine
DX: A41.9 Sepsis, unspecified organism (principal); J18.9 Pneumonia, unspecified organism; E87.6 Hypokalemia; E66.9 Obesity, unspecified; I10 Essential (primary) hypertension; Z20.822 Contact with and (suspected) exposure to COVID-19; R79.89 Other specified abnormal findings of blood chemistry; Z82.49 Family history of ischemic heart disease and other diseases of the circulatory system; Z86.16 Personal history of COVID-19; Z68.29 Body mass index [BMI] 29.0-29.9, adult
CPT/HCPCS: 36415; 71045; 71250; 80048; 80053; 81001; 83735; 84484; 85007; 85025; 85027; 87278; 87804; 93005; 93306; 94640; 96365; G0378; J0153; J0696; J7060

== ENCOUNTER 2021-11-20 10:26 | Inpatient (IN) | payer MEDICARE, OTHER ==
[~2021-11-20] VITALS: Ht 182.9 cm; Wt 96.6 kg
[~2021-11-20 10:26] MED LIST changes: -ASCO10003 PO; -CHOL1CAP47 PO; +DOX100T PO
[2021-11-20] MEDS ORDERED: methylPREDNISolone SOD SUCC 125 MG/2 ML VL IV ONE (11:15)
[2021-11-20 11:16] LABS: Hematocrit 43.6 % (41.0-53.0); Hemoglobin 14.5 g/dL (13.5-17.5); Mean Corpuscular Hemoglobin 29.6 pg (28.0-32.0); Mean Corpuscular Hgb Conc. 33.2 g/dL (32.0-36.0); White Blood Cell 8.2 10^3/uL (4.4-10.8)
[2021-11-20 11:21] LABS: Basophils % (manual) 0 (0.0-2.0); Blast Cells 0; Eosinophils % (manual) 0 (0-7); Myelocytes % 0; Promyelocytes % 0; Reactive Lymphocytes 0
[2021-11-20 11:34] LABS: Band Neutrophils % (manual) 5; Lymphocytes % (manual) 13 (10.0-50.0); Metamyelocytes % 2; Monocytes % (manual) 15 (0-12)
[2021-11-20 11:46] LABS: Calcium 9.7 mg/dL (8.5-10.1); Potassium 3.7 mmol/L (3.5-5.1)
[2021-11-20 11:51] LABS: Bilirubin, Total 0.6 mg/dL (0.2-1.0); Total Protein 7.1 g/dL (6.4-8.2)
[2021-11-20] MEDS ORDERED: AZITHROMYCIN 500MG/ 250ML 250 ML IV ONE (12:45)
[2021-11-20 14:10] LABS: Urine Amorphous Crystal FEW /hpf (None Seen); Urine Bacteria FEW /hpf (None Seen); Urine Blood Negative /uL (Negative); Urine Specific Gravity 1.013 (1.001-1.035); Urine WBC 2 /hpf (0 - 3)
[2021-11-20] MEDS ORDERED: MORPHINE SULFATE INJ 2 MG/ml SYRG IV PRN (17:00)
[2021-11-20] MEDS ORDERED: NITROGLYCERIN 0.4 MG SL TAB SL PRN (17:00)
[2021-11-20] MEDS ORDERED: ACETAMINOPHEN 500 MG TAB PO PRN (17:15)
[2021-11-20] MEDS ORDERED: hydrALAZINE HCL 20 MG/ML VL IV PRN (17:15)
[2021-11-20 17:22] LABS: Cholesterol 132 mg/dL (< 200); HDL Cholesterol 33 mg/dL (40-59); LDL Cholesterol 86 mg/dL (< 100); Triglycerides 123 mg/dL (< 150)
[2021-11-20 20:50] VITALS: BP 136/84
[2021-11-20] MEDS ORDERED: BUDESONIDE (INHALATION) 180 MCG IH IN SCH (22:00)
[2021-11-21 06:22] LABS: Hematocrit 40.6 % (41.0-53.0); Hemoglobin 14.1 g/dL (13.5-17.5); Mean Corpuscular Hemoglobin 30.6 pg (28.0-32.0); Mean Corpuscular Hgb Conc. 34.7 g/dL (32.0-36.0); Mean Corpuscular Volume 88.2 fL (80.0-100.0); Red Cell Distribution Width 13.8 % (11.8-14.3); White Blood Cell 6.5 10^3/uL (4.4-10.8)
[2021-11-21 06:24] LABS: Basophils % (manual) 0 (0.0-2.0); Blast Cells 0; Eosinophils % (manual) 0 (0-7); Metamyelocytes % 0; Promyelocytes % 0
[2021-11-21 06:39] LABS: Albumin 2.9 g/dL (3.4-5.0); Calcium 9.6 mg/dL (8.5-10.1)
[2021-11-21 06:42] LABS: Bilirubin, Total 0.5 mg/dL (0.2-1.0); Total Protein 6.9 g/dL (6.4-8.2)
[2021-11-21 07:59] LABS: Band Neutrophils % (manual) 3; Lymphocytes % (manual) 9 (10.0-50.0); Monocytes % (manual) 5 (0-12); Myelocytes % 1; Reactive Lymphocytes 2
[2021-11-21] MEDS: cefTRIAXone 1GM/50ML D5W 50 ML IV SCH (08:59)
[2021-11-21] MEDS: AZITHROMYCIN 500MG/ 250ML 250 ML IV SCH (09:53)
[2021-11-21] MEDS: ENOXAPARIN SOD 40 MG/0.4 ML SYRINGE SC SCH ×2 (09:53→10:00)
[2021-11-21] MEDS ORDERED: DexAMETHasone SOD PHOS 10MG/1ML VIAL INJ IV SCH (10:00)
[2021-11-21] MEDS ORDERED: FUROSEMIDE 20 MG/2 ML VIAL IV ONE (13:45)
[2021-11-21 17:55] VITALS: BP 130/84
[2021-11-21] MEDS: ALBUTEROL SULF 2.5 MG/0.5ML(0.5%) NEB SOLN NEB PRN ×2 (18:45→23:16)
[2021-11-21] MEDS: ACETYLCYSTEINE 10 %(100MG/ML) SOL 4ML NEB SCH ×2 (18:45→23:16)
[2021-11-21] MEDS: IPRATROPIUM BROM 0.5 MG/2.5ML INH SOL NEB PRN ×2 (18:45→23:16)
[2021-11-21 22:00] VITALS: BP 106/57
[2021-11-21] MEDS: BUDESONIDE (INHALATION) 0.5 MG/2 ML NEB NEB SCH (23:16)
[2021-11-22] MEDS: ACETYLCYSTEINE 10 %(100MG/ML) SOL 4ML NEB SCH ×6 (02:00→22:31)
[2021-11-22 05:00] VITALS: BP 149/86
[2021-11-22] MEDS: IPRATROPIUM BROM 0.5 MG/2.5ML INH SOL NEB PRN ×4 (06:09→22:31)
[2021-11-22] MEDS: ALBUTEROL SULF 2.5 MG/0.5ML(0.5%) NEB SOLN NEB PRN ×5 (06:09→22:31)
[2021-11-22 09:00] VITALS: BP 128/71
[2021-11-22] MEDS: ENOXAPARIN SOD 40 MG/0.4 ML SYRINGE SC SCH (09:07)
[2021-11-22] MEDS: cefTRIAXone 1GM/50ML D5W 50 ML IV SCH (09:07)
[2021-11-22] MEDS: FUROSEMIDE 20 MG/2 ML VIAL IV SCH (09:08)
[2021-11-22] MEDS: AZITHROMYCIN 500MG/ 250ML 250 ML IV SCH (09:46)
[2021-11-22] MEDS: BUDESONIDE (INHALATION) 0.5 MG/2 ML NEB NEB SCH ×2 (10:12→22:31)
[2021-11-22 13:00] VITALS: BP 117/85
[2021-11-22 17:00] VITALS: BP 112/66
[2021-11-22 22:00] VITALS: BP 107/59
[2021-11-23] MEDS: ALBUTEROL SULF 2.5 MG/0.5ML(0.5%) NEB SOLN NEB PRN ×3 (02:21→19:17)
[2021-11-23] MEDS: ACETYLCYSTEINE 10 %(100MG/ML) SOL 4ML NEB SCH ×2 (02:21→19:17)
[2021-11-23 05:00] VITALS: BP 107/73
[2021-11-23 09:00] VITALS: BP 119/68
[2021-11-23] MEDS: cefTRIAXone 1GM/50ML D5W 50 ML IV SCH (09:37)
[2021-11-23] MEDS: FUROSEMIDE 20 MG/2 ML VIAL IV SCH (09:38)
[2021-11-23] MEDS: ENOXAPARIN SOD 40 MG/0.4 ML SYRINGE SC SCH (09:39)
[2021-11-23] MEDS: IPRATROPIUM BROM 0.5 MG/2.5ML INH SOL NEB SCH ×2 (11:28→19:17)
[2021-11-23] MEDS: BUDESONIDE (INHALATION) 0.5 MG/2 ML NEB NEB SCH ×2 (11:28→19:17)
[2021-11-23] MEDS: AZITHROMYCIN 500MG/ 250ML 250 ML IV SCH (11:30)
[2021-11-23 13:00] VITALS: BP 108/74
[2021-11-23 17:00] VITALS: BP 142/73
[2021-11-23 22:00] VITALS: BP 128/61
[2021-11-24] MEDS: ALBUTEROL SULF 2.5 MG/0.5ML(0.5%) NEB SOLN NEB PRN ×3 (00:45→11:29)
[2021-11-24] MEDS: IPRATROPIUM BROM 0.5 MG/2.5ML INH SOL NEB SCH ×3 (00:46→11:29)
[2021-11-24] MEDS: ACETYLCYSTEINE 10 %(100MG/ML) SOL 4ML NEB SCH ×3 (00:46→11:29)
[2021-11-24 01:07] VITALS: BP 128/61
[2021-11-24 05:00] VITALS: BP 109/75
[2021-11-24] MEDS ORDERED: FUROSEMIDE 20 MG/2 ML VIAL IV ONE (07:15)
[2021-11-24 08:30] VITALS: BP 106/55
[2021-11-24] MEDS: FUROSEMIDE 20 MG/2 ML VIAL IV SCH (09:23)
[2021-11-24] MEDS: cefTRIAXone 1GM/50ML D5W 50 ML IV SCH (09:24)
[2021-11-24] MEDS: ENOXAPARIN SOD 40 MG/0.4 ML SYRINGE SC SCH (10:00)
[2021-11-24] MEDS: AZITHROMYCIN 500MG/ 250ML 250 ML IV SCH (10:54)
[2021-11-24] MEDS: BUDESONIDE (INHALATION) 0.5 MG/2 ML NEB NEB SCH (11:28)
[2021-11-24 12:30] VITALS: BP 136/82
[2021-11-24] MEDS ORDERED: IPRA0.00 IN (15:45)
[2021-11-24 17:35] VITALS: BP 107/74
== END 2021-11-24 19:25 | disposition home or self-care (01) | DRG 193 ==
LOC: ER 10:26 → TELE 16:58 → TELE-EAST 11-21 15:25 → EAST 11-22 14:24
PROVIDERS: ADMIT Registered Nurse; ATTEND Internal Medicine
DX: J18.9 Pneumonia, unspecified organism (principal); J96.01 Acute respiratory failure with hypoxia; N39.0 Urinary tract infection, site not specified; I10 Essential (primary) hypertension; Z20.822 Contact with and (suspected) exposure to COVID-19; Z86.16 Personal history of COVID-19
CPT/HCPCS: 36415; 71045; 71046; 80053; 80061; 81001; 82728; 83036; 83605; 83735; 83880; 84484; 85007; 85027; 85379; 86141; 87040; 87070; 87081; 87086; 87205; 87278; 93005; 94640; 96365; 96375; 99291; G0378; J0696; J1100